=== PATIENT | male | born 1975 | race Caucasian/White ===

== ENCOUNTER 2017-10-26 17:34 | Emergency (ER) | payer BC ==
[~2017-10-26] VITALS: Ht 188 cm; Wt 65.8 kg
[~2017-10-26 17:34] MED LIST: IBUPROFEN800 MG PO; NORCO 5-325 TA1 EACH PO; PROTONIX40 MG PO
[2017-10-26] MEDS ORDERED: ACETAMINOPHEN-1 EAC1 PO (20:45)
== END 2017-10-26 20:55 | disposition home or self-care (01) ==
LOC: ED 17:34
DX: S20.211A Contusion of right front wall of thorax, initial encounter (principal); F17.200 Nicotine dependence, unspecified, uncomplicated; Z79.899 Other long term (current) drug therapy
CPT/HCPCS: 71101; 99283

== ENCOUNTER 2020-01-25 19:00 | Emergency (ER) | payer BC ==
[~2020-01-25] VITALS: Ht 188 cm; Wt 65.8 kg
[~2020-01-25 19:00] MED LIST changes: +ACETAMINOPHEN-1 EAC1 PO
[2020-01-25] MEDS ORDERED: DICLOFENAC SODI75 MG PO (20:47)
--- NOTE | 2020-01-27 | EKG ---
[facility] [address] [facility] [place] [address] Signed Normal sinus rhythm Right atrial enlargement Rightward axis Pulmonary disease pattern Abnormal ECG No previous ECGs available Confirmed by RIGOBERTO PARISH MD ([id number] on 01/26/2020 11:59:55 PM Electronically Signed By: RIGOBERTO PARISH MD 01/27/20 0000 PATIENT NAME: DESMOND LEVINE DANE Electrocardiogram DATE OF : 77 PHYSICIAN: RIGOBERTO PARISH MD REPORT #: [id number] REPORT IS CONFIDENTIAL AND NOT TO BE RELEASED WITHOUT AUTHORIZATION
== END 2020-01-25 21:00 | disposition home or self-care (01) ==
LOC: ED 19:00
DX: R07.89 Other chest pain (principal); F17.200 Nicotine dependence, unspecified, uncomplicated
CPT/HCPCS: 71045; 80053; 83735; 84484; 85025; 96374; 99285-25; J1885; J7030

== ENCOUNTER 2020-12-19 14:46 | Emergency (ER) | payer BC ==
[~2020-12-19] VITALS: Ht 188 cm; Wt 64.9 kg
[~2020-12-19 14:46] MED LIST changes: +DICLOFENAC SODI75 MG PO
[2020-12-19] MEDS ORDERED: ONDANSETRON ODT4 MG PO (17:24)
== END 2020-12-19 17:26 | disposition home or self-care (01) ==
LOC: ED 14:46
DX: R51.9 Headache, unspecified (principal); F17.200 Nicotine dependence, unspecified, uncomplicated
CPT/HCPCS: 70450; 99284-25; A9270